=== PATIENT | male | born 1980 | race Two or more races ===

== ENCOUNTER 2020-02-22 05:54 | Emergency (ER) | payer SELFPAY ==
--- NOTE | 2020-02-22 06:30 | EDM.PDOC ---
<Brijesh Bo Maura - Last Filed: 02/22/20 07:30> ED HPI GENERAL MEDICAL PROBLEM - General Chief Complaint: Chest Pain Stated Complaint: CHEST PAIN Time Seen by Provider: 02/22/20 06:13 - Related Data Allergies Allergy/AdvReac Type Severity Reaction Status Date / Time No Known Allergies Allergy Verified 02/22/20 06:09 Home Meds: Home Meds . [No Known Home Meds] 02/22/20 [History] Course - Re-Assessments/Exams Free Text/Narrative Re-Assessment/Exam: 02/22/20 07:[address] Carney at change of shift. He believes the patient is in primarily with chest wall pain. Awaiting labs including cardiac markers. ECG reviewed and is not revealing any signs of ischemia. Portable chest x-ray reviewed and it is within normal limits showing clear lung thompson and normal size cardiac silhouette. 02/22/20 07:13 Hematology reveals a normal white count at 5.76. Differential pending hemoglobin 14.8 with hematocrit of 42.8. Platelet count 191,000. Sodium 141 with a potassium of 4.1. Chloride 106 with a bicarb of 24. Anion gap is 15.1. BUN is 12 with a creatinine of 0.8. GFR is greater than 60. Glucose is 132. Calcium 8.6 with a total bilirubin of 0.6. Liver function is normal troponin I is less than 0.017 total protein is 7.3 with an albumin fraction of 3.8. I examined the patient and clinically has chest wall pain probably muscular in between the ribs. We will give him a shot of Toradol 30 mg IV now. He plans on going to work. He will use Motrin 600 mg every 6 hours as needed for pain relief. Departure - Departure Time of Disposition: 07:31 Disposition: Home, Self-Care 01 Condition: Fair Clinical Impression: Non-cardiac chest pain, Anterior chest wall pain - Discharge Information *PRESCRIPTION DRUG MONITORING PROGRAM REVIEWED*: Not Applicable *COPY OF PRESCRIPTION DRUG MONITORING REPORT IN PATIENT FRANCESCO: Not Applicable Instructions: Chest Wall Pain, [id number], Nonspecific Chest Pain, Adult, [id number] Referrals: PCP,None [Ordering Only Provider] - Forms: ED Department Discharge, ED Return to Work/School Form Additional Instructions: Evaluation in the emergency room today in regards to development of gradually worsening left anterior upper chest pain particularly worsened by deep breathing and certain movements of the arm and shoulder. No palpable worsening of pain and palpation of the ribs. Pain seems to be worse with deep inspiration indicating muscle strain in between the ribs. Labs revealed no sign of heart related illness. Chest x-ray normal ECG was normal as well. No signs of heart related illness. Lungs are clear on on chest x-ray. Suggest use of Motrin 600 mg every 6 hours as needed for pain relief. You are given a shot of Toradol 30 mg intravenously before leaving the department therefore would not likely need oxygen until about 11:00 today. May return to work without any restrictions. <Cecilio Carney - Last Filed: 02/22/20 19:16> ED HPI GENERAL MEDICAL PROBLEM - General Source of Information: Reports: Patient History Limitations: Reports: No Limitations - History of Present Illness INITIAL COMMENTS - FREE TEXT/NARRATIVE: Mr. Veras is a very pleasant 39-year-old man with no chronic medical problems no past surgical history, who now presents the ED stating that he developed upper left chest discomfort, sharp in character, around noon on 02/20/2020. He states that initially the discomfort was mild, but yesterday he noticed it all day, particularly if he twisted to the right, although less so if he twisted to the left. Occasionally he would feel it if he took a deep breath. Today, while driving to work, he noticed that his left forearm felt somewhat tingly. No associated symptoms of nausea, dyspnea, diaphoresis, or sense of impending doom. He states that he has not felt the chest discomfort prior to 2 days ago, although he has felt the left forearm tingling in the past. He states that he has not taken any [id number] or home remedies to try to treat his symptoms. Here in the ED, the patient's initial BP is found to be mildly elevated at 142/98, otherwise, he is hemodynamically stable, afebrile, saturating 100% on room air. Other than the chest discomfort and left forearm tingling, the patient denies recent fever, chills, sore throat, ear pain, nasal or sinus congestion, cough, dyspnea, palpitations, nausea, vomiting, constipation, diarrhea, abdominal pain, urinary symptoms, recent weight gain or weight loss, recent bloody bowel movements or black bowel movements, recent joint aches, headaches, or rashes. The patient's PCP is in [place]. 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 ED EXAM, GENERAL - Physical Exam Exam: See Below Exam Limited By: No Limitations General Appearance: Alert, WD/WN, No Apparent Distress Eye Exam: Bilateral Eye: EOMI, Normal Inspection Ears: Normal External Exam, Hearing Grossly Normal Nose: Normal Inspection Throat/Mouth: Normal Inspection, Normal Lips, Normal Voice, No Airway Compromise Head: Atraumatic, Normocephalic Neck: Normal Inspection, Full Range of Motion Respiratory/Chest: No Respiratory Distress, Lungs Clear, Normal Breath Sounds, No Accessory Muscle Use, Chest Non-Tender (including the left upper chest), Other (Pain to the left upper chest was reproduced when the patient was asked to press his hands together with his arms outstretched and raised, and also when the patient was asked to twist to the right) Cardiovascular: Normal Peripheral Pulses, Regular Rate, Rhythm, No Edema, No Gallop, No JVD, No Murmur, No Rub Peripheral Pulses: 3+: Radial (L), Radial (R) GI/Abdominal: Normal Bowel Sounds, Soft, Non-Tender, No Organomegaly, No Distention, No Abnormal Bruit, No Mass (Male) Exam: Deferred Rectal (Males) Exam: Deferred Back Exam: Normal Inspection, Full Range of Motion, NT Extremities: Normal Inspection, Normal Range of Motion, No Pedal Edema, Normal Capillary Refill Neurological: Alert, Oriented, Normal Cognition, No Motor/Sensory Deficits Psychiatric: Normal Affect Skin Exam: Warm, Dry, Intact, Normal Color, No Rash EKG INTERPRETATION EKG Date: 02/22/20 Time: 06:00 Rhythm: NSR Rate (Beats/Min): 65 Dillon: 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1-51.0) % MCV 83.8 (79.0-92.2) fl MCH 29.0 (25.7-32.2) pg MCHC 34.6 (32.2-35.5) g/dl RDW Std Deviation 37.0 (35.1-43.9) fL Plt Count 191 (163-337) K/mm3 MPV 11.3 (9.4-12.3) fl Neutrophils % (Manual) 55 (40-60) % Band Neutrophils % 0 (0-10) % Lymphocytes % (Manual) 36 (20-40) % Atypical Lymphs % 0 % Monocytes % (Manual) 3 (2-10) % Eosinophils % (Manual) 5 (0.8-7.0) % Basophils % (Manual) 1 (0.2-1.2) Platelet Estimate Adequate Plt Morphology Comment Normal Anisocytosis RBC Morph Comment Normal D-Dimer, Quantitative < 0.19 L (0.19-0.50) mg/L Sodium 141 (136-145) mEq/L Potassium 4.1 (3.5-5.1) mEq/L Chloride 106 (98-107) mEq/L Carbon Dioxide 24 (21-32) mEq/L Anion Gap 15.1 H (5-15) BUN 12 (7-18) mg/dL Creatinine 0.8 (0.7-1.3) mg/dL Est Cr Clr Drug Dosing 90.80 mL/min Estimated GFR (MDRD) > 60 (>60) mL/min BUN/Creatinine Ratio 15.0 (14-18) Glucose 132 H (74-106) mg/dL Calcium 8.6 (8.5-10.1) mg/dL Total Bilirubin 0.6 (0.2-1.0) mg/dL AST 23 (15-37) U/L ALT 55 (16-63) U/L Alkaline Phosphatase 71 (46-116) U/L Troponin I < 0.017 (0.00-0.056) ng/mL Total Protein 7.3 (6.4-8.2) g/dl Albumin 3.8 (3.4-5.0) g/dl Globulin 3.5 gm/dL Albumin/Globulin Ratio 1.1 (1-2) Meds: Medications Discontinued Medications Generic Name Dose Route Start Last Admin Trade Name Freq PRN Reason Stop Dose Admin Ketorolac Tromethamine 30 mg 02/22/20 07:30 02/22/20 07:45 Toradol IVPUSH 30 mg ONETIME EHSAN Administration - Re-Assessments/Exams Free Text/Narrative Re-Assessment/Exam: 02/22/20 06:24 As above, the patient developed a sharper discomfort to a discrete area in his upper left chest 2 days ago that was initially minor, but became more persistent yesterday. On examination, it is reproducible if he presses his hands together with his arms raised and outstretched in front of him, and also if he turns to the right, although it is not reproducible with direct palpation to the area. His ECG, obtained at triage, shows no acute ischemic changes. His discomfort is almost certainly musculoskeletal in etiology, however, I have ordered a work-up that includes blood work and a chest x-ray. 02/22/20 06:57 Two-view chest radiograph appears to be grossly normal. The cardiac silhouette is within normal limits. No pulmonary vascular congestion. No pleural effusions. No focal infiltrate. No pneumothorax. Formal read per the Radiologist pending. Discussed with Dr. Bo, and care of the patient turned over to him at this time, for change of shift. All labs are still pending. Sepsis Event Note (ED) - Evaluation Sepsis Screening Result: No Definite Risk - Focused Exam Vital Signs: Vital Signs Temp Pulse Resp BP Pulse Ox 02/22/20 07:48 36.4 C 58 L 18 113/89 100 - My Orders Last 24 Hours: My Active Orders 02/22/20 06:14 EKG Documentation Completion [RC] STAT - Assessment/Plan Last 24 Hours: My Active Orders 02/22/20 06:14 EKG Documentation Completion [RC] STAT
--- NOTE | 2020-02-22 06:56 | CR ---
Chest: 2 views of the chest were obtained. Comparison: No prior chest imaging is available. Heart size and mediastinum are normal. Lungs are clear with no acute parenchymal change. Bony structures are unremarkable. Impression: 1. Nothing acute is seen on 2 view chest x-ray. Diagnostic code #1 Study was dictated in MDT
[2020-02-22] MEDS ORDERED: Ketorolac 30 MG/ML SDV IVPUSH SCH (07:30)
== END 2020-02-22 07:55 | disposition home or self-care (01) ==
LOC: JD.ED 05:54
DX: R07.89 Other chest pain (principal); E66.9 Obesity, unspecified; Z68.33 Body mass index [BMI] 33.0-33.9, adult
CPT/HCPCS: 36415; 71046; 80053; 84484; 85007; 85027; 85379; 93005; 96374; 99285; J1885; 93010; 99283